=== PATIENT | male | born 1950 | race Caucasian/White ===

== ENCOUNTER 2017-12-08 10:42 | Inpatient (IN) ==
[2017-12-08] MEDS ORDERED: ALBUTEROL/IPRATROPIUM 3 ML NEB RESP TX PRN (12:12)
[2017-12-08] MEDS: ALBUTEROL/IPRATROPIUM 3 ML NEB RESP TX SCH ×2 (13:00→19:22)
[2017-12-08 13:10] LABS: ABG Base Excess 5.6 MMOL/L (-2.5-2.5); ABG HCO3 30.3 MMOL/L (20-26); ABG Oxygen Saturation 87.5 % (95-100); ABG PCO2 44.4 MM HG (35-48); ABG PH 7.452 (7.35-7.45); ABG PO2 57.4 MM HG (80-95); ABG TCO2 31.7 MMOL/L (23-27)
[2017-12-08 13:47] LABS: Basophils % 0.1 % (0.0-0.8); Eosinophils % 0.1 % (0.00-10.9); Hematocrit 34.7 VOL% (42.0-52.0); Hemoglobin 11.7 GM/DL (14.0-18.0); Immature Granulocytes % 0.4 %; Immature Granulocytes Absolute 0.04 #; Lymphocytes # 0.6 10*3/uL (1.4-4.0); Lymphocytes % 6.2 % (21.2-54.2); Mean Corpuscular HGB Conc 33.7 GM/DL (32-36); Mean Corpuscular Hemoglobin 31 PG (27-34); Mean Corpuscular Volume 91.3 FL (87-102); Mean Platelet Volume 9.2 FL (9.6-12.0); Monocytes # 0.8 10*3/uL (0.11-0.8); Monocytes % 8.6 % (1.7-12.7); Neutrophils % 84.6 % (38.7-73.9); Platelet Count 213 T/CUMM (130-400); Red Cell Distribution Width 13.1 % (9.3-17.3); White Blood Count 9.4 T/CUMM (4-12)
[2017-12-08] MEDS ORDERED: GLUCAGON 1 MG VIAL IM PRN ×2 (13:50→13:51)
[2017-12-08] MEDS ORDERED: DEXTROSE 50% 25 GM/50 ML VIAL IV PRN ×2 (13:50→13:51)
[2017-12-08] MEDS ORDERED: methylPREDNISolone SOD SUC 40 MG/1 ML VIAL IV SCH (14:00)
[2017-12-08 14:17] LABS: Albumin 2.7 G/DL (3.4-5.0); Bilirubin,Total 0.4 MG/DL (0.2-1.0); Calcium 8.7 MG/DL (8.5-10.1); Osmolality,Calculated 274.7 MOS/KG (273-304); Potassium 3.7 MMOL/L (3.5-5.1); Thyroid Stimulating Hormone 0.509 uIU/ml (0.358-3.74); Total Protein 6.9 G/DL (6.4-8.3)
[2017-12-08] MEDS: DEXTROSE 5% NACL 0.45% 1,000 ML IV SCH (15:30)
[2017-12-08] MEDS: LEVOFLOXACIN INJ 500 MG in PREMIX 1 EACH IV SCH (15:40)
[2017-12-08] MEDS: metFORMIN 500 MG TABLET PO SCH (17:57)
[2017-12-08] MEDS: INSULIN REGULAR 100 UNIT/ML SUBCUT SCH ×2 (17:58→21:56)
[2017-12-08] MEDS: MONTELUKAST 10 MG TABLET PO SCH ×2 (18:00→20:26)
[2017-12-08] MEDS: CLINDAMYCIN INJ 300 MG in PREMIX 1 EACH IV SCH ×2 (18:10→21:57)
[2017-12-08] MEDS: cloNIDine 0.1 MG TABLET PO SCH ×2 (19:39→21:56)
[2017-12-08] MEDS: MEMANTINE 10 MG TABLET PO SCH (20:26)
[2017-12-08] MEDS: traZODone 50 MG TABLET PO SCH (20:26)
[2017-12-08] MEDS: ATORVASTATIN 80 MG TABLET PO SCH (20:26)
[2017-12-08] MEDS: FERROUS SULFATE 325 MG TABLET PO SCH (20:26)
[2017-12-08] MEDS: risperiDONE 1 MG TABLET PO SCH (20:26)
[2017-12-08] MEDS: PHENobarbital 30 MG TABLET PO SCH (20:26)
[2017-12-08] MEDS: OMEGA 3 ACID ETHYL ESTERS 1 GM CAPSULE PO SCH (20:27)
[2017-12-08] MEDS: TAMSULOSIN 0.4 MG CAPSULE PO SCH (20:27)
[2017-12-08] MEDS: hydrOXYzine HCL 25 MG TABLET PO SCH (20:27)
[2017-12-08] MEDS: MAGNESIUM OXIDE 400 MG TABLET PO SCH (20:27)
[2017-12-08] MEDS: FLUTICASONE/SALMETEROL 100-50 DISKUS 14 DOSE INH SCH (21:51)
[2017-12-08] MEDS: METOPROLOL TARTRATE 50 MG TABLET PO SCH (21:52)
[2017-12-09] MEDS: ALBUTEROL/IPRATROPIUM 3 ML NEB RESP TX SCH ×4 (01:02→19:28)
[2017-12-09] MEDS: cloNIDine 0.1 MG TABLET PO SCH ×6 (03:03→21:00)
[2017-12-09] MEDS: CLINDAMYCIN INJ 300 MG in PREMIX 1 EACH IV SCH ×4 (03:03→21:00)
[2017-12-09] MEDS: methylPREDNISolone SOD SUC 40 MG/1 ML VIAL IV SCH ×2 (03:03→16:58)
[2017-12-09 05:40] LABS: Eosinophils % 0.3 % (0.00-10.9); Hematocrit 30.4 VOL% (42.0-52.0); Hemoglobin 9.8 GM/DL (14.0-18.0); Immature Granulocytes % 0.6 %; Immature Granulocytes Absolute 0.04 #; Lymphocytes # 0.8 10*3/uL (1.4-4.0); Lymphocytes % 12.2 % (21.2-54.2); Mean Corpuscular HGB Conc 32.2 GM/DL (32-36); Mean Corpuscular Hemoglobin 30 PG (27-34); Mean Corpuscular Volume 91.6 FL (87-102); Mean Platelet Volume 9.4 FL (9.6-12.0); Monocytes # 0.6 10*3/uL (0.11-0.8); Monocytes % 9.2 % (1.7-12.7); Neutrophils % 77.7 % (38.7-73.9); Platelet Count 203 T/CUMM (130-400); Red Blood Count 3.32 MC/CUMM (3.8-5.5); Red Cell Distribution Width 13.2 % (9.3-17.3); White Blood Count 6.4 T/CUMM (4-12)
[2017-12-09 06:09] LABS: Calcium 8.1 MG/DL (8.5-10.1); Osmolality,Calculated 276.2 MOS/KG (273-304); Potassium 3.6 MMOL/L (3.5-5.1)
[2017-12-09] MEDS: OMEGA 3 ACID ETHYL ESTERS 1 GM CAPSULE PO SCH ×2 (09:40→20:58)
[2017-12-09] MEDS: metFORMIN 500 MG TABLET PO SCH ×2 (09:40→16:57)
[2017-12-09] MEDS: PHENobarbital 30 MG TABLET PO SCH ×2 (09:40→21:03)
[2017-12-09] MEDS: THIAMINE 100 MG TABLET PO SCH (09:40)
[2017-12-09] MEDS: METOPROLOL TARTRATE 50 MG TABLET PO SCH ×2 (09:40→20:58)
[2017-12-09] MEDS: FOLIC ACID 1 MG TABLET PO SCH (09:41)
[2017-12-09] MEDS: MAGNESIUM OXIDE 400 MG TABLET PO SCH ×2 (09:41→20:58)
[2017-12-09] MEDS: MULTIVITAMIN (CENTRUM) TABLET PO SCH (09:41)
[2017-12-09] MEDS: ASPIRIN 325 MG TABLET PO SCH (09:41)
[2017-12-09] MEDS: FLUTICASONE/SALMETEROL 100-50 DISKUS 14 DOSE INH SCH ×2 (09:42→21:01)
[2017-12-09] MEDS: CETIRIZINE 10 MG TABLET PO PRN (09:42)
[2017-12-09] MEDS: VENLAFAXINE XR 75 MG CAPSULE PO SCH (09:42)
[2017-12-09] MEDS: FERROUS SULFATE 325 MG TABLET PO SCH ×2 (09:42→20:57)
[2017-12-09] MEDS: risperiDONE 1 MG TABLET PO SCH ×2 (09:53→20:57)
[2017-12-09] MEDS: MEMANTINE 10 MG TABLET PO SCH ×2 (09:53→20:58)
[2017-12-09] MEDS: amLODIPine 5 MG TABLET PO SCH (09:53)
[2017-12-09] MEDS: DEXTROSE 5% NACL 0.45% 1,000 ML IV SCH (10:03)
[2017-12-09] MEDS: INSULIN REGULAR 100 UNIT/ML SUBCUT SCH ×4 (10:06→20:57)
[2017-12-09 10:11] LABS: Apearance,Urine CLEAR (Clear); Bacteria,Urine Occasional /HPF (Few); Bilirubin,Urine Negative (Negative); Blood, Urine Negative (Negative); Glucose,Urine (UA) 150 mg/dL (Negative); Ketones,Urine Negative (Negative); Mucus,Urine Occasional /LPF (Occasional); Nitrite,Urine Negative (Negative); Protein,Urine Negative; RBC,Urine 2 /HPF (0-4); Sperm,Urine Occasional /HPF (Negative); Squamous Epithelial Cell,Urine Occasional /HPF (0-10); Urine Color Yellow (Yellow); Urine Specific Gravity 1.017 (1.001-1.035); Urine Urobilinogen < 2.0 EU/DL (0.2-1.0); WBC,Urine 5 /HPF (0-6)
[2017-12-09] MEDS: LEVOFLOXACIN INJ 500 MG in PREMIX 1 EACH IV SCH (17:58)
[2017-12-09] MEDS: traZODone 50 MG TABLET PO SCH (20:57)
[2017-12-09] MEDS: MONTELUKAST 10 MG TABLET PO SCH (20:57)
[2017-12-09] MEDS: hydrOXYzine HCL 25 MG TABLET PO SCH (20:58)
[2017-12-09] MEDS: ATORVASTATIN 80 MG TABLET PO SCH (20:58)
[2017-12-09] MEDS: TAMSULOSIN 0.4 MG CAPSULE PO SCH (21:03)
[2017-12-10] MEDS: cloNIDine 0.1 MG TABLET PO SCH ×6 (02:50→23:32)
[2017-12-10] MEDS: CLINDAMYCIN INJ 300 MG in PREMIX 1 EACH IV SCH ×4 (03:01→23:32)
[2017-12-10] MEDS: methylPREDNISolone SOD SUC 40 MG/1 ML VIAL IV SCH ×2 (03:01→16:26)
[2017-12-10] MEDS: DEXTROSE 5% NACL 0.45% 1,000 ML IV SCH ×2 (03:51→22:40)
[2017-12-10] MEDS: ALBUTEROL/IPRATROPIUM 3 ML NEB RESP TX SCH ×4 (07:35→19:35)
[2017-12-10] MEDS: FOLIC ACID 1 MG TABLET PO SCH (09:19)
[2017-12-10] MEDS: PHENobarbital 30 MG TABLET PO SCH ×2 (09:19→21:18)
[2017-12-10] MEDS: risperiDONE 1 MG TABLET PO SCH ×2 (09:19→21:19)
[2017-12-10] MEDS: METOPROLOL TARTRATE 50 MG TABLET PO SCH ×2 (09:19→21:19)
[2017-12-10] MEDS: MEMANTINE 10 MG TABLET PO SCH ×2 (09:19→21:19)
[2017-12-10] MEDS: MULTIVITAMIN (CENTRUM) TABLET PO SCH (09:19)
[2017-12-10] MEDS: FERROUS SULFATE 325 MG TABLET PO SCH ×2 (09:20→21:19)
[2017-12-10] MEDS: VENLAFAXINE XR 75 MG CAPSULE PO SCH (09:20)
[2017-12-10] MEDS: metFORMIN 500 MG TABLET PO SCH ×2 (09:20→16:25)
[2017-12-10] MEDS: amLODIPine 5 MG TABLET PO SCH (09:20)
[2017-12-10] MEDS: MAGNESIUM OXIDE 400 MG TABLET PO SCH ×2 (09:20→21:19)
[2017-12-10] MEDS: THIAMINE 100 MG TABLET PO SCH (09:21)
[2017-12-10] MEDS: CETIRIZINE 10 MG TABLET PO PRN (09:21)
[2017-12-10] MEDS: ASPIRIN 325 MG TABLET PO SCH (09:26)
[2017-12-10] MEDS: INSULIN REGULAR 100 UNIT/ML SUBCUT SCH ×4 (09:35→21:20)
[2017-12-10] MEDS: FLUTICASONE/SALMETEROL 100-50 DISKUS 14 DOSE INH SCH ×2 (09:37→22:05)
[2017-12-10] MEDS: OMEGA 3 ACID ETHYL ESTERS 1 GM CAPSULE PO SCH ×2 (09:37→21:19)
[2017-12-10] MEDS: LEVOFLOXACIN INJ 500 MG in PREMIX 1 EACH IV SCH (15:05)
[2017-12-10] MEDS: hydrOXYzine HCL 25 MG TABLET PO SCH (21:19)
[2017-12-10] MEDS: TAMSULOSIN 0.4 MG CAPSULE PO SCH (21:19)
[2017-12-10] MEDS: ATORVASTATIN 80 MG TABLET PO SCH (21:19)
[2017-12-10] MEDS: MONTELUKAST 10 MG TABLET PO SCH (21:19)
[2017-12-10] MEDS: traZODone 50 MG TABLET PO SCH (21:19)
[2017-12-11] MEDS: ALBUTEROL/IPRATROPIUM 3 ML NEB RESP TX SCH ×4 (01:06→19:22)
[2017-12-11] MEDS: cloNIDine 0.1 MG TABLET PO SCH ×6 (02:42→21:09)
[2017-12-11] MEDS: methylPREDNISolone SOD SUC 40 MG/1 ML VIAL IV SCH ×3 (04:25→21:36)
[2017-12-11] MEDS: CLINDAMYCIN INJ 300 MG in PREMIX 1 EACH IV SCH ×5 (04:27→21:52)
[2017-12-11] MEDS: INSULIN REGULAR 100 UNIT/ML SUBCUT SCH ×4 (09:36→21:11)
[2017-12-11] MEDS: FOLIC ACID 1 MG TABLET PO SCH (09:37)
[2017-12-11] MEDS: metFORMIN 500 MG TABLET PO SCH ×2 (09:37→16:51)
[2017-12-11] MEDS: PHENobarbital 30 MG TABLET PO SCH ×2 (09:37→21:08)
[2017-12-11] MEDS: MULTIVITAMIN (CENTRUM) TABLET PO SCH (09:37)
[2017-12-11] MEDS: MAGNESIUM OXIDE 400 MG TABLET PO SCH ×2 (09:37→21:08)
[2017-12-11] MEDS: ASPIRIN 325 MG TABLET PO SCH (09:37)
[2017-12-11] MEDS: OMEGA 3 ACID ETHYL ESTERS 1 GM CAPSULE PO SCH ×2 (09:37→21:10)
[2017-12-11] MEDS: VENLAFAXINE XR 75 MG CAPSULE PO SCH (09:38)
[2017-12-11] MEDS: METOPROLOL TARTRATE 50 MG TABLET PO SCH ×2 (09:38→21:08)
[2017-12-11] MEDS: THIAMINE 100 MG TABLET PO SCH (09:38)
[2017-12-11] MEDS: FERROUS SULFATE 325 MG TABLET PO SCH ×2 (09:38→21:10)
[2017-12-11] MEDS: amLODIPine 5 MG TABLET PO SCH (09:38)
[2017-12-11] MEDS: MEMANTINE 10 MG TABLET PO SCH ×2 (09:38→21:11)
[2017-12-11] MEDS: risperiDONE 1 MG TABLET PO SCH ×2 (09:38→21:08)
[2017-12-11] MEDS: FLUTICASONE/SALMETEROL 100-50 DISKUS 14 DOSE INH SCH ×2 (09:38→21:13)
[2017-12-11] MEDS ORDERED: ACETAMINOPHEN 325 MG TABLET PO PRN (09:48)
[2017-12-11] MEDS: LEVOFLOXACIN INJ 500 MG in PREMIX 1 EACH IV SCH (16:52)
[2017-12-11] MEDS: traZODone 50 MG TABLET PO SCH (21:09)
[2017-12-11] MEDS: TAMSULOSIN 0.4 MG CAPSULE PO SCH (21:09)
[2017-12-11] MEDS: hydrOXYzine HCL 25 MG TABLET PO SCH (21:11)
[2017-12-11] MEDS: ATORVASTATIN 80 MG TABLET PO SCH (21:11)
[2017-12-11] MEDS: MONTELUKAST 10 MG TABLET PO SCH (21:11)
[2017-12-11] MEDS: DEXTROSE 5% NACL 0.45% 1,000 ML IV SCH ×2 (21:40→21:46)
[2017-12-12] MEDS: cloNIDine 0.1 MG TABLET PO SCH ×6 (05:31→21:47)
[2017-12-12] MEDS: CLINDAMYCIN INJ 300 MG in PREMIX 1 EACH IV SCH ×4 (05:34→21:45)
[2017-12-12] MEDS: ALBUTEROL/IPRATROPIUM 3 ML NEB RESP TX SCH ×4 (07:19→19:12)
[2017-12-12] MEDS: methylPREDNISolone SOD SUC 40 MG/1 ML VIAL IV SCH ×2 (10:46→21:46)
[2017-12-12] MEDS: INSULIN REGULAR 100 UNIT/ML SUBCUT SCH ×4 (10:46→21:46)
[2017-12-12] MEDS: FOLIC ACID 1 MG TABLET PO SCH (10:47)
[2017-12-12] MEDS: MAGNESIUM OXIDE 400 MG TABLET PO SCH ×2 (10:47→21:46)
[2017-12-12] MEDS: amLODIPine 5 MG TABLET PO SCH (10:47)
[2017-12-12] MEDS: PHENobarbital 30 MG TABLET PO SCH ×2 (10:47→21:47)
[2017-12-12] MEDS: ASPIRIN 325 MG TABLET PO SCH (10:48)
[2017-12-12] MEDS: FLUTICASONE/SALMETEROL 100-50 DISKUS 14 DOSE INH SCH ×2 (10:48→21:44)
[2017-12-12] MEDS: VENLAFAXINE XR 75 MG CAPSULE PO SCH (10:48)
[2017-12-12] MEDS: THIAMINE 100 MG TABLET PO SCH (10:48)
[2017-12-12] MEDS: MULTIVITAMIN (CENTRUM) TABLET PO SCH (10:48)
[2017-12-12] MEDS: metFORMIN 500 MG TABLET PO SCH ×2 (10:48→17:19)
[2017-12-12] MEDS: OMEGA 3 ACID ETHYL ESTERS 1 GM CAPSULE PO SCH ×2 (10:48→21:53)
[2017-12-12] MEDS: FERROUS SULFATE 325 MG TABLET PO SCH ×2 (10:48→21:47)
[2017-12-12] MEDS: MEMANTINE 10 MG TABLET PO SCH ×2 (10:48→21:46)
[2017-12-12] MEDS: risperiDONE 1 MG TABLET PO SCH ×2 (10:48→21:47)
[2017-12-12] MEDS: METOPROLOL TARTRATE 50 MG TABLET PO SCH ×2 (10:48→21:47)
[2017-12-12] MEDS: DORNASE ALFA 2.5 MG/2.5 ML VIAL RESP TX SCH ×2 (13:38→19:21)
[2017-12-12] MEDS: LEVOFLOXACIN INJ 500 MG in PREMIX 1 EACH IV SCH (15:11)
[2017-12-12] MEDS: DEXTROSE 5% NACL 0.45% 1,000 ML IV SCH (19:20)
[2017-12-12] MEDS: hydrOXYzine HCL 25 MG TABLET PO SCH (21:46)
[2017-12-12] MEDS: TAMSULOSIN 0.4 MG CAPSULE PO SCH (21:46)
[2017-12-12] MEDS: traZODone 50 MG TABLET PO SCH (21:46)
[2017-12-12] MEDS: MONTELUKAST 10 MG TABLET PO SCH (21:46)
[2017-12-12] MEDS: ATORVASTATIN 80 MG TABLET PO SCH (21:47)
[2017-12-13] MEDS: cloNIDine 0.1 MG TABLET PO SCH ×6 (00:02→21:29)
[2017-12-13] MEDS: ALBUTEROL/IPRATROPIUM 3 ML NEB RESP TX SCH ×4 (01:20→19:18)
[2017-12-13 04:52] LABS: Basophils % 0.2 % (0.0-0.8); Eosinophils % 0.3 % (0.00-10.9); Hematocrit 34.1 VOL% (42.0-52.0); Hemoglobin 11.1 GM/DL (14.0-18.0); Immature Granulocytes % 0.6 %; Immature Granulocytes Absolute 0.06 #; Lymphocytes # 0.8 10*3/uL (1.4-4.0); Lymphocytes % 7.5 % (21.2-54.2); Mean Corpuscular HGB Conc 32.6 GM/DL (32-36); Mean Corpuscular Hemoglobin 30 PG (27-34); Mean Corpuscular Volume 91.7 FL (87-102); Mean Platelet Volume 9.3 FL (9.6-12.0); Monocytes # 0.5 10*3/uL (0.11-0.8); Monocytes % 4.6 % (1.7-12.7); Neutrophils # 8.6 10*3/uL (1.4-7.4); Neutrophils % 86.8 % (38.7-73.9); Platelet Count 243 T/CUMM (130-400); Red Blood Count 3.72 MC/CUMM (3.8-5.5); White Blood Count 9.9 T/CUMM (4-12)
[2017-12-13] MEDS: CLINDAMYCIN INJ 300 MG in PREMIX 1 EACH IV SCH ×4 (05:09→21:32)
[2017-12-13 05:24] LABS: Calcium 8.3 MG/DL (8.5-10.1); Osmolality,Calculated 269.7 MOS/KG (273-304); Potassium 4.6 MMOL/L (3.5-5.1)
[2017-12-13] MEDS: DORNASE ALFA 2.5 MG/2.5 ML VIAL RESP TX SCH ×2 (07:30→19:18)
[2017-12-13] MEDS: INSULIN REGULAR 100 UNIT/ML SUBCUT SCH ×4 (08:58→21:59)
[2017-12-13] MEDS: methylPREDNISolone SOD SUC 40 MG/1 ML VIAL IV SCH ×2 (09:30→21:29)
[2017-12-13] MEDS: amLODIPine 5 MG TABLET PO SCH (09:37)
[2017-12-13] MEDS: MULTIVITAMIN (CENTRUM) TABLET PO SCH (09:37)
[2017-12-13] MEDS: MEMANTINE 10 MG TABLET PO SCH ×2 (09:37→21:28)
[2017-12-13] MEDS: METOPROLOL TARTRATE 50 MG TABLET PO SCH ×2 (09:37→21:28)
[2017-12-13] MEDS: PHENobarbital 30 MG TABLET PO SCH ×2 (09:37→21:25)
[2017-12-13] MEDS: OMEGA 3 ACID ETHYL ESTERS 1 GM CAPSULE PO SCH ×2 (09:37→21:27)
[2017-12-13] MEDS: FERROUS SULFATE 325 MG TABLET PO SCH ×2 (09:37→21:28)
[2017-12-13] MEDS: THIAMINE 100 MG TABLET PO SCH (09:37)
[2017-12-13] MEDS: ASPIRIN 325 MG TABLET PO SCH (09:37)
[2017-12-13] MEDS: MAGNESIUM OXIDE 400 MG TABLET PO SCH ×3 (09:37→21:25)
[2017-12-13] MEDS: FOLIC ACID 1 MG TABLET PO SCH (09:37)
[2017-12-13] MEDS: metFORMIN 500 MG TABLET PO SCH ×2 (09:37→17:27)
[2017-12-13] MEDS: VENLAFAXINE XR 75 MG CAPSULE PO SCH (09:37)
[2017-12-13] MEDS: FLUTICASONE/SALMETEROL 100-50 DISKUS 14 DOSE INH SCH ×2 (09:38→21:24)
[2017-12-13 10:38] LABS: ABG Base Excess 2.5 MMOL/L (-2.5-2.5); ABG HCO3 26.4 MMOL/L (20-26); ABG Oxygen Saturation 87.2 % (95-100); ABG PCO2 45.3 MM HG (35-48); ABG PH 7.396 (7.35-7.45); ABG PO2 56.6 MM HG (80-95); ABG TCO2 24.9 MMOL/L (23-27)
[2017-12-13] MEDS: risperiDONE 1 MG TABLET PO SCH ×2 (12:54→21:25)
[2017-12-13] MEDS: LEVOFLOXACIN INJ 500 MG in PREMIX 1 EACH IV SCH (16:12)
[2017-12-13] MEDS: DEXTROSE 5% NACL 0.45% 1,000 ML IV SCH (16:14)
[2017-12-13] MEDS: MONTELUKAST 10 MG TABLET PO SCH (21:25)
[2017-12-13] MEDS: ATORVASTATIN 80 MG TABLET PO SCH (21:26)
[2017-12-13] MEDS: traZODone 50 MG TABLET PO SCH (21:26)
[2017-12-13] MEDS: hydrOXYzine HCL 25 MG TABLET PO SCH (21:27)
[2017-12-13] MEDS: TAMSULOSIN 0.4 MG CAPSULE PO SCH (21:28)
[2017-12-14] MEDS: cloNIDine 0.1 MG TABLET PO SCH ×6 (00:47→20:17)
[2017-12-14] MEDS: ALBUTEROL/IPRATROPIUM 3 ML NEB RESP TX SCH ×4 (02:06→20:15)
[2017-12-14] MEDS: CLINDAMYCIN INJ 300 MG in PREMIX 1 EACH IV SCH ×4 (04:00→22:08)
[2017-12-14] MEDS: DORNASE ALFA 2.5 MG/2.5 ML VIAL RESP TX SCH ×2 (07:10→20:15)
[2017-12-14] MEDS: METOPROLOL TARTRATE 50 MG TABLET PO SCH ×2 (09:05→20:17)
[2017-12-14] MEDS: MAGNESIUM OXIDE 400 MG TABLET PO SCH ×3 (09:05→20:17)
[2017-12-14] MEDS: MULTIVITAMIN (CENTRUM) TABLET PO SCH (09:06)
[2017-12-14] MEDS: amLODIPine 5 MG TABLET PO SCH (09:06)
[2017-12-14] MEDS: metFORMIN 500 MG TABLET PO SCH ×2 (09:06→16:27)
[2017-12-14] MEDS: OMEGA 3 ACID ETHYL ESTERS 1 GM CAPSULE PO SCH ×2 (09:06→20:17)
[2017-12-14] MEDS: MEMANTINE 10 MG TABLET PO SCH ×2 (09:07→20:17)
[2017-12-14] MEDS: THIAMINE 100 MG TABLET PO SCH (09:07)
[2017-12-14] MEDS: risperiDONE 1 MG TABLET PO SCH ×2 (09:07→20:16)
[2017-12-14] MEDS: ASPIRIN 325 MG TABLET PO SCH (09:07)
[2017-12-14] MEDS: VENLAFAXINE XR 75 MG CAPSULE PO SCH (09:08)
[2017-12-14] MEDS: FERROUS SULFATE 325 MG TABLET PO SCH ×2 (09:08→20:17)
[2017-12-14] MEDS: FOLIC ACID 1 MG TABLET PO SCH (09:08)
[2017-12-14] MEDS: methylPREDNISolone SOD SUC 40 MG/1 ML VIAL IV SCH ×2 (09:12→20:18)
[2017-12-14] MEDS: DEXTROSE 5% NACL 0.45% 1,000 ML IV SCH (09:25)
[2017-12-14] MEDS: INSULIN REGULAR 100 UNIT/ML SUBCUT SCH ×4 (09:45→20:24)
[2017-12-14] MEDS: FLUTICASONE/SALMETEROL 100-50 DISKUS 14 DOSE INH SCH ×2 (09:46→20:18)
[2017-12-14] MEDS: PHENobarbital 30 MG TABLET PO SCH ×2 (10:16→20:17)
[2017-12-14] MEDS: LEVOFLOXACIN INJ 500 MG in PREMIX 1 EACH IV SCH (16:28)
[2017-12-14] MEDS: TAMSULOSIN 0.4 MG CAPSULE PO SCH (20:17)
[2017-12-14] MEDS: ATORVASTATIN 80 MG TABLET PO SCH (20:17)
[2017-12-14] MEDS: MONTELUKAST 10 MG TABLET PO SCH (20:17)
[2017-12-14] MEDS: traZODone 50 MG TABLET PO SCH (20:17)
[2017-12-14] MEDS: hydrOXYzine HCL 25 MG TABLET PO SCH (20:17)
[2017-12-15] MEDS: cloNIDine 0.1 MG TABLET PO SCH ×4 (00:22→12:50)
[2017-12-15] MEDS: ALBUTEROL/IPRATROPIUM 3 ML NEB RESP TX SCH ×2 (01:28→07:50)
[2017-12-15 03:24] LABS: Basophils % 0.1 % (0.0-0.8); Eosinophils % 0.3 % (0.00-10.9); Hematocrit 34.1 VOL% (42.0-52.0); Hemoglobin 10.9 GM/DL (14.0-18.0); Immature Granulocytes % 0.4 %; Immature Granulocytes Absolute 0.04 #; Lymphocytes # 0.8 10*3/uL (1.4-4.0); Lymphocytes % 8.4 % (21.2-54.2); Mean Corpuscular Hemoglobin 30 PG (27-34); Mean Corpuscular Volume 93.4 FL (87-102); Mean Platelet Volume 9.7 FL (9.6-12.0); Monocytes # 0.4 10*3/uL (0.11-0.8); Monocytes % 4.6 % (1.7-12.7); Neutrophils # 8.3 10*3/uL (1.4-7.4); Neutrophils % 86.2 % (38.7-73.9); Platelet Count 256 T/CUMM (130-400); Red Blood Count 3.65 MC/CUMM (3.8-5.5); Red Cell Distribution Width 12.9 % (9.3-17.3); White Blood Count 9.6 T/CUMM (4-12)
[2017-12-15] MEDS: CLINDAMYCIN INJ 300 MG in PREMIX 1 EACH IV SCH ×2 (03:36→09:09)
[2017-12-15] MEDS: DEXTROSE 5% NACL 0.45% 1,000 ML IV SCH (03:39)
[2017-12-15 04:33] LABS: Calcium 8.4 MG/DL (8.5-10.1); Osmolality,Calculated 271.8 MOS/KG (273-304); Potassium 5.7 MMOL/L (3.5-5.1)
[2017-12-15] MEDS: DORNASE ALFA 2.5 MG/2.5 ML VIAL RESP TX SCH (07:54)
[2017-12-15] MEDS: metFORMIN 500 MG TABLET PO SCH (08:23)
[2017-12-15] MEDS: VENLAFAXINE XR 75 MG CAPSULE PO SCH (08:23)
[2017-12-15] MEDS: METOPROLOL TARTRATE 50 MG TABLET PO SCH (08:23)
[2017-12-15] MEDS: INSULIN REGULAR 100 UNIT/ML SUBCUT SCH ×2 (08:23→12:49)
[2017-12-15] MEDS: MAGNESIUM OXIDE 400 MG TABLET PO SCH (08:23)
[2017-12-15] MEDS: PHENobarbital 30 MG TABLET PO SCH (08:23)
[2017-12-15] MEDS: FOLIC ACID 1 MG TABLET PO SCH (08:23)
[2017-12-15] MEDS: THIAMINE 100 MG TABLET PO SCH (08:23)
[2017-12-15] MEDS: FERROUS SULFATE 325 MG TABLET PO SCH (08:23)
[2017-12-15] MEDS: OMEGA 3 ACID ETHYL ESTERS 1 GM CAPSULE PO SCH (08:23)
[2017-12-15] MEDS: amLODIPine 5 MG TABLET PO SCH (08:24)
[2017-12-15] MEDS: MULTIVITAMIN (CENTRUM) TABLET PO SCH (08:24)
[2017-12-15] MEDS: risperiDONE 1 MG TABLET PO SCH (08:24)
[2017-12-15] MEDS: methylPREDNISolone SOD SUC 40 MG/1 ML VIAL IV SCH (08:24)
[2017-12-15] MEDS: ASPIRIN 325 MG TABLET PO SCH (08:24)
[2017-12-15] MEDS: MEMANTINE 10 MG TABLET PO SCH (08:24)
[2017-12-15] MEDS: FLUTICASONE/SALMETEROL 100-50 DISKUS 14 DOSE INH SCH (08:25)
[2017-12-15 09:11] VITALS: BP 145/70
[2017-12-15] MEDS ORDERED: MAGNESIUM SULF RIDER 2 GM in PREMIX 1 EACH IV PRN (09:17)
[2017-12-15] MEDS ORDERED: MAGNESIUM SULF RIDER 4 GM in PREMIX 1 EACH IV PRN (09:17)
== END 2017-12-15 14:09 | DRG 194 ==
LOC: N.5E 12:24
PROVIDERS: ADMIT Internal Medicine Pulmonary Disease; ATTEND Internal Medicine Pulmonary Disease

== ENCOUNTER 2019-10-23 19:17 | Inpatient (IN) ==
[2019-10-23] MEDS ORDERED: ALBUTEROL/IPRATROPIUM 3 ML NEB RESP TX STA (20:57)
[2019-10-23] MEDS ORDERED: SODIUM CHLORIDE 0.9% 1,000 ML IV STA (20:57)
[2019-10-23 21:19] LABS: Basophils % 0.3 % (0.0-0.8); Eosinophils # 0.2 10*3/uL (0.0-0.87); Hemoglobin 11.3 GM/DL (14.0-18.0); Immature Granulocytes % 0.3 %; Immature Granulocytes Absolute 0.03 #; Lymphocytes # 1.1 10*3/uL (1.4-4.0); Lymphocytes % 10.8 % (21.2-54.2); Mean Corpuscular HGB Conc 32.3 GM/DL (32-36); Mean Corpuscular Volume 87.9 FL (87-102); Mean Platelet Volume 9.3 FL (9.6-12.0); Monocytes % 13.6 % (1.7-12.7); Platelet Count 208 T/CUMM (130-400); Red Blood Count 3.98 MC/CUMM (3.8-5.5); Red Cell Distribution Width 14.3 % (9.3-17.3); White Blood Count 10.1 T/CUMM (4-12)
[2019-10-23 21:44] LABS: Alanine Aminotransferase 20 U/L (16-61); Albumin 2.9 G/DL (3.4-5.0); Alkaline Phosphatase 86 U/L (45-117); Aspartate Amino Transferase 20 U/L (0-37); Bilirubin,Total < 0.39 MG/DL (0.2-1.0); Blood Urea Nitrogen 11 MG/DL (7-18); Calcium 8.9 MG/DL (8.5-10.1); Estimated Glom Filtration Rate 113 ML/MIN; Glucose 124 MG/DL (74-106); Osmolality,Calculated 256.1 MOS/KG (273-304); Total Protein 7.3 G/DL (6.4-8.3); Troponin I < 0.015 NG/ML (0.00-0.045)
[2019-10-23 21:47] LABS: INR 1.1; PT Patient Result 11.6 SECS (9.8-11.9); Partial Thromboplastin Time 34.7 SECS (23.9-33.8)
[2019-10-23] MEDS ORDERED: LEVOFLOXACIN INJ 750 MG in PREMIX 1 EACH IV STA (23:37)
[2019-10-23] MEDS ORDERED: MORPHINE 4 MG/1 ML VIAL IV PRN (23:56)
[2019-10-23] MEDS ORDERED: hydrALAZINE 20 MG/1 ML VIAL IV PRN (23:56)
[2019-10-23] MEDS ORDERED: GLUCAGON 1 MG VIAL IM PRN (23:56)
[2019-10-23] MEDS ORDERED: NICOTINE 21 MG/24 HR PATCH TRANSDERM PRN (23:56)
[2019-10-23] MEDS ORDERED: ZALEPLON 5 MG CAPSULE PO PRN (23:56)
[2019-10-23] MEDS ORDERED: guaiFENesin/DM ER 600-30 MG TABLET PO PRN (23:56)
[2019-10-23] MEDS ORDERED: ACETAMINOPHEN 325 MG TABLET PO PRN (23:56)
[2019-10-23] MEDS ORDERED: diphenhydrAMINE CAP 25 MG CAPSULE PO PRN (23:56)
[2019-10-23] MEDS ORDERED: ONDANSETRON 4 MG/2 ML VIAL IV PRN (23:56)
[2019-10-23] MEDS ORDERED: DEXTROSE 50% 25 GM/50 ML VIAL IV PRN (23:56)
[2019-10-24] MEDS ORDERED: AZITHROMYCIN INJ 500 MG in SODIUM CHLORIDE 0.9% 250 ML IV SCH
[2019-10-24] MEDS ORDERED: VANCOMYCIN INJ 1,250 MG in SODIUM CHLORIDE 0.9% 250 ML IV SCH (01:00)
[2019-10-24 01:29] LABS: Apearance,Urine CLEAR (Clear); Bilirubin,Urine Negative (Negative); Blood, Urine Negative (Negative); Glucose,Urine (UA) Negative (Negative); Ketones,Urine Negative (Negative); Mucus,Urine Occasional /LPF (Occasional); Nitrite,Urine Negative (Negative); Protein,Urine Negative; RBC,Urine 13 /HPF (0-4); Urine Color Yellow (Yellow); WBC,Urine 4 /HPF (0-6)
[2019-10-24 02:24] LABS: Basophils % 0.3 % (0.0-0.8); Eosinophils # 0.2 10*3/uL (0.0-0.87); Eosinophils % 1.8 % (0.00-10.9); Hematocrit 32.6 VOL% (42.0-52.0); Hemoglobin 10.6 GM/DL (14.0-18.0); Immature Granulocytes % 0.4 %; Immature Granulocytes Absolute 0.04 #; Lymphocytes # 1.1 10*3/uL (1.4-4.0); Lymphocytes % 12.7 % (21.2-54.2); Mean Corpuscular HGB Conc 32.5 GM/DL (32-36); Mean Corpuscular Volume 88.3 FL (87-102); Mean Platelet Volume 9.1 FL (9.6-12.0); Monocytes % 12.8 % (1.7-12.7); Platelet Count 184 T/CUMM (130-400); Red Blood Count 3.69 MC/CUMM (3.8-5.5); Red Cell Distribution Width 14.3 % (9.3-17.3)
[2019-10-24] MEDS ORDERED: ALBUTEROL INHALER 18 GM INH PRN (02:43)
[2019-10-24 02:44] LABS: Alanine Aminotransferase 18 U/L (16-61); Albumin 2.6 G/DL (3.4-5.0); Alkaline Phosphatase 78 U/L (45-117); Aspartate Amino Transferase 18 U/L (0-37); Bilirubin,Total < 0.39 MG/DL (0.2-1.0); Blood Urea Nitrogen 11 MG/DL (7-18); Calcium 8.3 MG/DL (8.5-10.1); Estimated Glom Filtration Rate 122 ML/MIN; Glucose 173 MG/DL (74-106); Osmolality,Calculated 260.9 MOS/KG (273-304); Total Protein 6.9 G/DL (6.4-8.3)
[2019-10-24] MEDS: methylPREDNISolone SOD SUC 40 MG/1 ML VIAL IV SCH ×5 (02:45→18:33)
[2019-10-24] MEDS ORDERED: PANTOPRAZOLE 40 MG TABLET PO SCH (09:00)
[2019-10-24] MEDS ORDERED: AZITHROMYCIN 250 MG TABLET PO SCH (09:00)
[2019-10-24] MEDS ORDERED: LEVOFLOXACIN INJ 500 MG in PREMIX 1 EACH IV SCH (09:30)
[2019-10-24] MEDS: INSULIN LISPRO 100 UNIT/ML SUBCUT SCH ×4 (09:49→21:53)
[2019-10-24] MEDS: ENOXAPARIN 40 MG/0.4 ML SYRINGE SUBCUT SCH (09:49)
[2019-10-24] MEDS: ALBUTEROL INHALER 18 GM INH SCH ×5 (09:49→23:45)
[2019-10-24] MEDS: ASPIRIN 325 MG TABLET PO SCH (09:50)
[2019-10-24] MEDS: VENLAFAXINE XR 75 MG CAPSULE PO SCH (09:50)
[2019-10-24] MEDS: FOLIC ACID 1 MG TABLET PO SCH (09:51)
[2019-10-24] MEDS: METOPROLOL TARTRATE 50 MG TABLET PO SCH ×2 (09:51→20:33)
[2019-10-24] MEDS: THIAMINE 100 MG TABLET PO SCH (09:51)
[2019-10-24] MEDS: MULTIVITAMIN (CENTRUM) TABLET PO SCH (09:52)
[2019-10-24] MEDS: FERROUS SULFATE 325 MG TABLET PO SCH ×2 (09:52→20:32)
[2019-10-24] MEDS: DOCUSATE SODIUM 100 MG CAPSULE PO SCH ×2 (09:52→20:33)
[2019-10-24] MEDS: amLODIPine 5 MG TABLET PO SCH (09:52)
[2019-10-24] MEDS: MEMANTINE 10 MG TABLET PO SCH ×2 (09:52→20:33)
[2019-10-24] MEDS: OMEGA 3 ACID ETHYL ESTERS 1 GM CAPSULE PO SCH ×2 (09:52→20:33)
[2019-10-24] MEDS: traZODone 50 MG TABLET PO SCH (20:32)
[2019-10-24] MEDS: ATORVASTATIN 80 MG TABLET PO SCH (20:33)
[2019-10-24] MEDS: TAMSULOSIN 0.4 MG CAPSULE PO SCH (20:33)
[2019-10-24] MEDS: MONTELUKAST 10 MG TABLET PO SCH (20:33)
[2019-10-25] MEDS: methylPREDNISolone SOD SUC 40 MG/1 ML VIAL IV SCH ×4 (00:49→21:01)
[2019-10-25] MEDS: ALBUTEROL INHALER 18 GM INH SCH ×6 (03:37→23:58)
[2019-10-25 07:28] LABS: Hematocrit 31.9 VOL% (42.0-52.0); Hemoglobin 10.5 GM/DL (14.0-18.0); Immature Granulocytes % 0.5 %; Immature Granulocytes Absolute 0.03 #; Lymphocytes # 0.7 10*3/uL (1.4-4.0); Lymphocytes % 10.2 % (21.2-54.2); Mean Corpuscular HGB Conc 32.9 GM/DL (32-36); Mean Corpuscular Volume 86.7 FL (87-102); Mean Platelet Volume 9.5 FL (9.6-12.0); Monocytes % 4.9 % (1.7-12.7); Neutrophils % 84.4 % (38.7-73.9); Platelet Count 194 T/CUMM (130-400); Red Blood Count 3.68 MC/CUMM (3.8-5.5); Red Cell Distribution Width 14.2 % (9.3-17.3); White Blood Count 6.6 T/CUMM (4-12)
[2019-10-25 07:45] LABS: Calcium 8.7 MG/DL (8.5-10.1); Osmolality,Calculated 257.2 MOS/KG (273-304)
[2019-10-25 08:08] LABS: Ferritin 143.4 ng/ml (26-388)
[2019-10-25] MEDS: INSULIN LISPRO 100 UNIT/ML SUBCUT SCH ×4 (09:21→21:01)
[2019-10-25] MEDS: VENLAFAXINE XR 75 MG CAPSULE PO SCH (09:22)
[2019-10-25] MEDS: ASPIRIN 325 MG TABLET PO SCH (09:22)
[2019-10-25] MEDS: OMEGA 3 ACID ETHYL ESTERS 1 GM CAPSULE PO SCH ×2 (09:22→21:00)
[2019-10-25] MEDS: FERROUS SULFATE 325 MG TABLET PO SCH ×2 (09:22→21:00)
[2019-10-25] MEDS: METOPROLOL TARTRATE 50 MG TABLET PO SCH ×2 (09:22→21:00)
[2019-10-25] MEDS: MEMANTINE 10 MG TABLET PO SCH ×2 (09:22→21:01)
[2019-10-25] MEDS: ENOXAPARIN 40 MG/0.4 ML SYRINGE SUBCUT SCH (09:22)
[2019-10-25] MEDS: MULTIVITAMIN (CENTRUM) TABLET PO SCH (09:22)
[2019-10-25] MEDS: FOLIC ACID 1 MG TABLET PO SCH (09:22)
[2019-10-25] MEDS: DOCUSATE SODIUM 100 MG CAPSULE PO SCH ×2 (09:23→21:14)
[2019-10-25] MEDS: LEVOFLOXACIN 500 MG TABLET PO SCH (09:23)
[2019-10-25] MEDS: amLODIPine 5 MG TABLET PO SCH (09:23)
[2019-10-25] MEDS: THIAMINE 100 MG TABLET PO SCH (09:23)
[2019-10-25] MEDS ORDERED: VANCOMYCIN INJ 1,000 MG in SODIUM CHLORIDE 0.9% 250 ML IV SCH (13:30)
[2019-10-25] MEDS: traZODone 50 MG TABLET PO SCH (21:00)
[2019-10-25] MEDS: ATORVASTATIN 80 MG TABLET PO SCH (21:00)
[2019-10-25] MEDS: TAMSULOSIN 0.4 MG CAPSULE PO SCH (21:01)
[2019-10-25] MEDS: MONTELUKAST 10 MG TABLET PO SCH (21:01)
[2019-10-26] MEDS: ALBUTEROL INHALER 18 GM INH SCH ×6 (03:12→23:53)
[2019-10-26] MEDS: methylPREDNISolone SOD SUC 40 MG/1 ML VIAL IV SCH ×4 (03:12→20:35)
[2019-10-26 06:14] LABS: Hematocrit 33.1 VOL% (42.0-52.0); Hemoglobin 10.8 GM/DL (14.0-18.0); Immature Granulocytes % 0.5 %; Immature Granulocytes Absolute 0.04 #; Lymphocytes # 0.7 10*3/uL (1.4-4.0); Lymphocytes % 9.5 % (21.2-54.2); Mean Corpuscular HGB Conc 32.6 GM/DL (32-36); Mean Corpuscular Volume 87.3 FL (87-102); Mean Platelet Volume 9.4 FL (9.6-12.0); Monocytes % 3.7 % (1.7-12.7); Neutrophils % 86.3 % (38.7-73.9); Platelet Count 221 T/CUMM (130-400); Red Blood Count 3.79 MC/CUMM (3.8-5.5); White Blood Count 7.6 T/CUMM (4-12)
[2019-10-26 06:43] LABS: Calcium 8.9 MG/DL (8.5-10.1); Osmolality,Calculated 259.1 MOS/KG (273-304)
[2019-10-26 06:54] LABS: Ferritin 150.9 ng/ml (26-388)
[2019-10-26] MEDS: INSULIN LISPRO 100 UNIT/ML SUBCUT SCH ×4 (08:39→20:34)
[2019-10-26] MEDS: DOCUSATE SODIUM 100 MG CAPSULE PO SCH ×2 (08:40→20:36)
[2019-10-26] MEDS: OMEGA 3 ACID ETHYL ESTERS 1 GM CAPSULE PO SCH ×2 (08:40→20:36)
[2019-10-26] MEDS: VENLAFAXINE XR 75 MG CAPSULE PO SCH (08:40)
[2019-10-26] MEDS: LEVOFLOXACIN 500 MG TABLET PO SCH (08:40)
[2019-10-26] MEDS: THIAMINE 100 MG TABLET PO SCH (08:40)
[2019-10-26] MEDS: FERROUS SULFATE 325 MG TABLET PO SCH ×2 (08:40→20:35)
[2019-10-26] MEDS: amLODIPine 5 MG TABLET PO SCH (08:40)
[2019-10-26] MEDS: MEMANTINE 10 MG TABLET PO SCH ×2 (08:40→20:36)
[2019-10-26] MEDS: MULTIVITAMIN (CENTRUM) TABLET PO SCH (08:40)
[2019-10-26] MEDS: ENOXAPARIN 40 MG/0.4 ML SYRINGE SUBCUT SCH (08:40)
[2019-10-26] MEDS: ASPIRIN 325 MG TABLET PO SCH (08:40)
[2019-10-26] MEDS: METOPROLOL TARTRATE 50 MG TABLET PO SCH ×2 (08:40→20:35)
[2019-10-26] MEDS: FOLIC ACID 1 MG TABLET PO SCH (08:40)
[2019-10-26] MEDS: ATORVASTATIN 80 MG TABLET PO SCH (20:35)
[2019-10-26] MEDS: MONTELUKAST 10 MG TABLET PO SCH (20:36)
[2019-10-26] MEDS: TAMSULOSIN 0.4 MG CAPSULE PO SCH (20:36)
[2019-10-26] MEDS: traZODone 50 MG TABLET PO SCH (20:36)
[2019-10-27] MEDS: methylPREDNISolone SOD SUC 40 MG/1 ML VIAL IV SCH ×2 (02:52→08:16)
[2019-10-27] MEDS: ALBUTEROL INHALER 18 GM INH SCH ×3 (02:53→10:30)
[2019-10-27 06:38] LABS: Hematocrit 38.5 VOL% (42.0-52.0); Hemoglobin 12.6 GM/DL (14.0-18.0); Immature Granulocytes % 0.8 %; Immature Granulocytes Absolute 0.05 #; Lymphocytes # 0.8 10*3/uL (1.4-4.0); Lymphocytes % 12.2 % (21.2-54.2); Mean Corpuscular HGB Conc 32.7 GM/DL (32-36); Mean Corpuscular Volume 85.6 FL (87-102); Mean Platelet Volume 9.5 FL (9.6-12.0); Monocytes % 6.8 % (1.7-12.7); Neutrophils % 80.2 % (38.7-73.9); Platelet Count 261 T/CUMM (130-400); Red Cell Distribution Width 13.9 % (9.3-17.3); White Blood Count 6.5 T/CUMM (4-12)
[2019-10-27 06:44] LABS: Calcium 9.3 MG/DL (8.5-10.1); Osmolality,Calculated 255.5 MOS/KG (273-304)
[2019-10-27 06:48] LABS: Ferritin 177.4 ng/ml (26-388)
[2019-10-27] MEDS: MULTIVITAMIN (CENTRUM) TABLET PO SCH (08:14)
[2019-10-27] MEDS: VENLAFAXINE XR 75 MG CAPSULE PO SCH (08:14)
[2019-10-27] MEDS: ASPIRIN 325 MG TABLET PO SCH (08:14)
[2019-10-27] MEDS: LEVOFLOXACIN 500 MG TABLET PO SCH (08:15)
[2019-10-27] MEDS: THIAMINE 100 MG TABLET PO SCH (08:15)
[2019-10-27] MEDS: ENOXAPARIN 40 MG/0.4 ML SYRINGE SUBCUT SCH (08:15)
[2019-10-27] MEDS: INSULIN LISPRO 100 UNIT/ML SUBCUT SCH ×2 (08:15→11:24)
[2019-10-27] MEDS: FOLIC ACID 1 MG TABLET PO SCH (08:15)
[2019-10-27] MEDS: METOPROLOL TARTRATE 50 MG TABLET PO SCH (08:15)
[2019-10-27] MEDS: OMEGA 3 ACID ETHYL ESTERS 1 GM CAPSULE PO SCH (08:15)
[2019-10-27] MEDS: DOCUSATE SODIUM 100 MG CAPSULE PO SCH (08:15)
[2019-10-27] MEDS: MEMANTINE 10 MG TABLET PO SCH (08:15)
[2019-10-27] MEDS: FERROUS SULFATE 325 MG TABLET PO SCH (08:15)
[2019-10-27] MEDS: amLODIPine 5 MG TABLET PO SCH (08:15)
[2019-10-27 11:23] VITALS: BP 148/73
== END 2019-10-27 15:19 | DRG 190 ==
LOC: EDUNIT# → EDBD → N.ED 19:17 → N.EDINP 23:56 → N.2E 10-24 01:34 → N.4E 10-26 11:39
PROVIDERS: ADMIT Hospitalist; ATTEND Hospitalist

== ENCOUNTER 2021-11-11 16:55 | Inpatient (IN) ==
[2021-11-11] MEDS ORDERED: SODIUM CHLORIDE 0.9% 1,000 ML IV STA (17:44)
[2021-11-11 18:34] LABS: Arterial Base Excess iSTAT 6 MMOL/L (-2.5-2.5); Arterial Bicarbonate iSTAT 32.9 MMOL/L (20-26); Arterial O2 Saturation iSTAT 72 % (95-100); Arterial PCO2 iSTAT 57 MM HG (35-48); Arterial PO2 iSTAT 40 MM HG (80-95); Arterial Total CO2 iSTAT 35 MMO/L (23-27); Arterial pH iSTAT 7.372 (7.35-7.45)
[2021-11-11 18:34] LABS: Arterial Base Excess iSTAT 5 MMOL/L (-2.5-2.5); Arterial Bicarbonate iSTAT 31.5 MMOL/L (20-26); Arterial O2 Saturation iSTAT 91 % (95-100); Arterial PCO2 iSTAT 53 MM HG (35-48); Arterial PO2 iSTAT 62 MM HG (80-95); Arterial Total CO2 iSTAT 33 MMO/L (23-27); Arterial pH iSTAT 7.385 (7.35-7.45)
[2021-11-11 18:46] LABS: Basophils % 0.3 % (0.0-0.8); Eosinophils # 0.3 10*3/uL (0.0-0.87); Eosinophils % 4.7 % (0.00-10.9); Hematocrit 34.4 VOL% (42.0-52.0); Hemoglobin 10.8 GM/DL (14.0-18.0); Immature Granulocytes % 0.3 %; Immature Granulocytes Absolute 0.02 #; Lymphocytes # 1.4 10*3/uL (1.4-4.0); Lymphocytes % 19.3 % (21.2-54.2); Mean Corpuscular HGB Conc 31.4 GM/DL (32-36); Mean Corpuscular Volume 91.5 FL (87-102); Monocytes # 0.9 10*3/uL (0.11-0.8); Monocytes % 12.8 % (1.7-12.7); Neutrophils % 62.6 % (38.7-73.9); Platelet Count 223 T/CUMM (130-400); Red Blood Count 3.76 MC/CUMM (3.8-5.5); Red Cell Distribution Width 14.1 % (9.3-17.3)
[2021-11-11] MEDS ORDERED: LEVOFLOXACIN INJ 500 MG/100 ML PREMIX IV ONE (19:07)
[2021-11-11] MEDS ORDERED: ALBUTEROL/IPRATROPIUM 3 ML NEB RESP TX STA (19:07)
[2021-11-11] MEDS ORDERED: methylPREDNISolone SOD SUC 125 MG/2 ML VIAL IV STA (19:07)
[2021-11-11 19:16] LABS: Alanine Aminotransferase 23 U/L (16-61); Albumin 2.6 G/DL (3.4-5.0); Alkaline Phosphatase 81 U/L (45-117); Aspartate Amino Transferase 24 U/L (0-37); Bilirubin,Total < 0.39 MG/DL (0.20-1.00); Blood Urea Nitrogen 10 MG/DL (7-18); Calcium 8.5 MG/DL (8.5-10.1); Carbon Dioxide 32 MMOL/L (21-32); Chloride 99 MMOL/L (98-107); Glucose 111 MG/DL (74-106); Osmolality,Calculated 267.2 MOS/KG (273-304); Potassium 4.4 MMOL/L (3.5-5.1); Sodium 134 MMOL/L (136-145); Total Protein 7.3 G/DL (6.4-8.2)
[2021-11-11] MEDS ORDERED: GLUCAGON 1 MG VIAL IM PRN ×2 (20:14)
[2021-11-11] MEDS ORDERED: ONDANSETRON 4 MG/2 ML VIAL IV PRN (20:14)
[2021-11-11] MEDS ORDERED: DEXTROSE 10% 250 ML BAG IV PRN (20:14)
[2021-11-11] MEDS ORDERED: DEXTROSE 50% 25 GM/50 ML VIAL IV PRN (20:14)
[2021-11-11] MEDS ORDERED: ACETAMINOPHEN 325 MG TABLET PO PRN (20:14)
[2021-11-11] MEDS ORDERED: DOXYCYCLINE HYCLATE INJ 100 MG in SODIUM CHLORIDE 0.9% 100 ML IV SCH (21:00)
[2021-11-11] MEDS ORDERED: cloNIDine 0.1 MG TABLET PO PRN (21:00)
[2021-11-11] MEDS: ENOXAPARIN 40 MG/0.4 ML SYRINGE SUBCUT SCH (22:01)
[2021-11-11] MEDS: INSULIN REGULAR 100 UNIT/ML SUBCUT SCH (22:07)
[2021-11-11] MEDS ORDERED: AZITHROMYCIN INJ 500 MG in SODIUM CHLORIDE 0.9% 250 ML IV SCH (23:00)
[2021-11-11] MEDS: LACTATED RINGERS 1,000 ML IV SCH (23:28)
[2021-11-12] MEDS: ALBUTEROL 2.5 MG/3 ML NEB RESP TX SCH ×4 (00:18→19:43)
[2021-11-12] MEDS: methylPREDNISolone SOD SUC 40 MG/1 ML VIAL IV SCH ×2 (03:11→18:42)
[2021-11-12 05:30] LABS: Basophils % 0.2 % (0.0-0.8); Eosinophils % 0.2 % (0.00-10.9); Hematocrit 32.3 VOL% (42.0-52.0); Hemoglobin 10.1 GM/DL (14.0-18.0); Immature Granulocytes % 0.3 %; Immature Granulocytes Absolute 0.02 #; Lymphocytes # 0.6 10*3/uL (1.4-4.0); Lymphocytes % 10.8 % (21.2-54.2); Mean Corpuscular HGB Conc 31.3 GM/DL (32-36); Mean Platelet Volume 9.9 FL (9.6-12.0); Monocytes # 0.2 10*3/uL (0.11-0.8); Neutrophils % 85.5 % (38.7-73.9); Platelet Count 216 T/CUMM (130-400); Red Blood Count 3.51 MC/CUMM (3.8-5.5); Red Cell Distribution Width 13.8 % (9.3-17.3); White Blood Count 5.8 T/CUMM (4-12)
[2021-11-12 05:53] LABS: Calcium 8.5 MG/DL (8.5-10.1); Osmolality,Calculated 275.1 MOS/KG (273-304); Potassium 5.2 MMOL/L (3.5-5.1)
[2021-11-12] MEDS: LACTATED RINGERS 1,000 ML IV SCH (06:08)
[2021-11-12] MEDS ORDERED: ALBUTEROL/IPRATROPIUM 3 ML NEB RESP TX ONE (06:48)
[2021-11-12] MEDS: ASCORBIC ACID 500 MG TABLET PO SCH (09:06)
[2021-11-12] MEDS: ASPIRIN EC 81 MG TABLET PO SCH (09:07)
[2021-11-12] MEDS: amLODIPine 5 MG TABLET PO SCH (09:08)
[2021-11-12] MEDS: PANTOPRAZOLE 40 MG TABLET PO SCH (09:08)
[2021-11-12] MEDS: INSULIN REGULAR 100 UNIT/ML SUBCUT SCH ×4 (09:09→22:37)
[2021-11-12] MEDS ORDERED: ZINC OXIDE PASTE 113 GM TUBE TOP PRN (12:07)
[2021-11-12] MEDS ORDERED: CETIRIZINE 10 MG TABLET PO PRN (14:28)
[2021-11-12] MEDS: LEVOFLOXACIN INJ 750 MG/150 ML PREMIX IV SCH (18:45)
[2021-11-12] MEDS: buPROPion SR 100 MG TABLET PO SCH (21:14)
[2021-11-12] MEDS: ENOXAPARIN 40 MG/0.4 ML SYRINGE SUBCUT SCH (21:14)
[2021-11-12] MEDS: MAGNESIUM OXIDE 400 MG TABLET PO SCH (21:15)
[2021-11-12] MEDS: traZODone 50 MG TABLET PO SCH (21:15)
[2021-11-12] MEDS: MEMANTINE 10 MG TABLET PO SCH (21:16)
[2021-11-12] MEDS: TAMSULOSIN 0.4 MG CAPSULE PO SCH (21:16)
[2021-11-12] MEDS: MONTELUKAST 10 MG TABLET PO SCH (21:16)
[2021-11-12] MEDS: ATORVASTATIN 80 MG TABLET PO SCH (21:16)
[2021-11-12] MEDS: PHENobarbital 30 MG TABLET PO SCH (21:17)
[2021-11-12] MEDS: DOCUSATE SODIUM 100 MG CAPSULE PO SCH (21:18)
[2021-11-13] MEDS: ALBUTEROL 2.5 MG/3 ML NEB RESP TX SCH ×4 (00:05→19:22)
[2021-11-13] MEDS: methylPREDNISolone SOD SUC 40 MG/1 ML VIAL IV SCH ×3 (02:11→20:51)
[2021-11-13 05:35] LABS: Basophils % 0.4 % (0.0-0.8); Eosinophils % 0.2 % (0.00-10.9); Hematocrit 33.2 VOL% (42.0-52.0); Hemoglobin 10.6 GM/DL (14.0-18.0); Immature Granulocytes % 0.4 %; Immature Granulocytes Absolute 0.02 #; Lymphocytes # 0.6 10*3/uL (1.4-4.0); Lymphocytes % 11.7 % (21.2-54.2); Mean Corpuscular HGB Conc 31.9 GM/DL (32-36); Mean Corpuscular Volume 90.2 FL (87-102); Mean Platelet Volume 9.8 FL (9.6-12.0); Monocytes # 0.2 10*3/uL (0.11-0.8); Monocytes % 3.9 % (1.7-12.7); Neutrophils % 83.4 % (38.7-73.9); Platelet Count 240 T/CUMM (130-400); Red Blood Count 3.68 MC/CUMM (3.8-5.5); Red Cell Distribution Width 13.7 % (9.3-17.3); White Blood Count 5.4 T/CUMM (4-12)
[2021-11-13 05:49] LABS: Calcium 8.5 MG/DL (8.5-10.1); Osmolality,Calculated 276.7 MOS/KG (273-304); Potassium 4.6 MMOL/L (3.5-5.1)
[2021-11-13] MEDS: INSULIN REGULAR 100 UNIT/ML SUBCUT SCH ×4 (09:01→20:51)
[2021-11-13] MEDS: ASCORBIC ACID 500 MG TABLET PO SCH (09:17)
[2021-11-13] MEDS: DOCUSATE SODIUM 100 MG CAPSULE PO SCH ×2 (09:17→20:50)
[2021-11-13] MEDS: VENLAFAXINE XR 75 MG CAPSULE PO SCH (09:17)
[2021-11-13] MEDS: PANTOPRAZOLE 40 MG TABLET PO SCH (09:17)
[2021-11-13] MEDS: ASPIRIN EC 81 MG TABLET PO SCH (09:17)
[2021-11-13] MEDS: buPROPion SR 100 MG TABLET PO SCH ×2 (09:17→20:50)
[2021-11-13] MEDS: amLODIPine 5 MG TABLET PO SCH (09:18)
[2021-11-13] MEDS: risperiDONE 0.5 MG TABLET PO SCH (09:18)
[2021-11-13] MEDS: MEMANTINE 10 MG TABLET PO SCH ×2 (09:18→20:53)
[2021-11-13] MEDS: PHENobarbital 30 MG TABLET PO SCH ×2 (09:18→20:50)
[2021-11-13] MEDS: MAGNESIUM OXIDE 400 MG TABLET PO SCH ×3 (09:18→20:51)
[2021-11-13] MEDS: LEVOFLOXACIN INJ 750 MG/150 ML PREMIX IV SCH (18:19)
[2021-11-13] MEDS: ENOXAPARIN 40 MG/0.4 ML SYRINGE SUBCUT SCH (20:50)
[2021-11-13] MEDS: TAMSULOSIN 0.4 MG CAPSULE PO SCH (20:50)
[2021-11-13] MEDS: ATORVASTATIN 80 MG TABLET PO SCH (20:51)
[2021-11-13] MEDS: MONTELUKAST 10 MG TABLET PO SCH (20:51)
[2021-11-13] MEDS: traZODone 50 MG TABLET PO SCH (20:51)
[2021-11-14] MEDS: ALBUTEROL 2.5 MG/3 ML NEB RESP TX SCH ×4 (00:33→19:14)
[2021-11-14 06:16] LABS: Basophils % 0.2 % (0.0-0.8); Eosinophils % 0.4 % (0.00-10.9); Hematocrit 33.7 VOL% (42.0-52.0); Hemoglobin 10.6 GM/DL (14.0-18.0); Immature Granulocytes % 0.2 %; Immature Granulocytes Absolute 0.01 #; Lymphocytes # 1.1 10*3/uL (1.4-4.0); Lymphocytes % 24.1 % (21.2-54.2); Mean Corpuscular HGB Conc 31.5 GM/DL (32-36); Mean Corpuscular Volume 90.3 FL (87-102); Mean Platelet Volume 9.6 FL (9.6-12.0); Monocytes # 0.5 10*3/uL (0.11-0.8); Monocytes % 10.4 % (1.7-12.7); Neutrophils % 64.7 % (38.7-73.9); Platelet Count 257 T/CUMM (130-400); Red Blood Count 3.73 MC/CUMM (3.8-5.5); Red Cell Distribution Width 13.8 % (9.3-17.3); White Blood Count 4.7 T/CUMM (4-12)
[2021-11-14 06:34] LABS: Calcium 8.8 MG/DL (8.5-10.1); Potassium 4.2 MMOL/L (3.5-5.1)
[2021-11-14] MEDS: MAGNESIUM OXIDE 400 MG TABLET PO SCH ×3 (09:24→19:53)
[2021-11-14] MEDS: DOCUSATE SODIUM 100 MG CAPSULE PO SCH ×2 (09:24→19:53)
[2021-11-14] MEDS: ASPIRIN EC 81 MG TABLET PO SCH (09:24)
[2021-11-14] MEDS: VENLAFAXINE XR 75 MG CAPSULE PO SCH (09:24)
[2021-11-14] MEDS: MEMANTINE 10 MG TABLET PO SCH ×2 (09:24→19:54)
[2021-11-14] MEDS: PANTOPRAZOLE 40 MG TABLET PO SCH (09:25)
[2021-11-14] MEDS: amLODIPine 5 MG TABLET PO SCH (09:25)
[2021-11-14] MEDS: ASCORBIC ACID 500 MG TABLET PO SCH (09:25)
[2021-11-14] MEDS: buPROPion SR 100 MG TABLET PO SCH ×2 (09:25→21:23)
[2021-11-14] MEDS: risperiDONE 0.5 MG TABLET PO SCH (09:25)
[2021-11-14] MEDS: PHENobarbital 30 MG TABLET PO SCH ×2 (09:25→20:06)
[2021-11-14] MEDS: methylPREDNISolone SOD SUC 40 MG/1 ML VIAL IV SCH ×3 (09:26→20:06)
[2021-11-14] MEDS: NICOTINE 21 MG/24 HR PATCH TRANSDERM SCH (09:33)
[2021-11-14] MEDS: INSULIN REGULAR 100 UNIT/ML SUBCUT SCH ×4 (11:19→21:22)
[2021-11-14] MEDS: LEVOFLOXACIN INJ 750 MG/150 ML PREMIX IV SCH (18:04)
[2021-11-14] MEDS: ATORVASTATIN 80 MG TABLET PO SCH (19:53)
[2021-11-14] MEDS: MONTELUKAST 10 MG TABLET PO SCH (19:54)
[2021-11-14] MEDS: traZODone 50 MG TABLET PO SCH (19:55)
[2021-11-14] MEDS: TAMSULOSIN 0.4 MG CAPSULE PO SCH (19:55)
[2021-11-14] MEDS: ENOXAPARIN 40 MG/0.4 ML SYRINGE SUBCUT SCH (21:23)
[2021-11-15] MEDS: ALBUTEROL 2.5 MG/3 ML NEB RESP TX SCH ×3 (00:18→14:10)
[2021-11-15] MEDS: methylPREDNISolone SOD SUC 40 MG/1 ML VIAL IV SCH ×2 (05:19→12:32)
[2021-11-15 06:41] LABS: Basophils % 0.4 % (0.0-0.8); Eosinophils # 0.1 10*3/uL (0.0-0.87); Eosinophils % 0.9 % (0.00-10.9); Hematocrit 34.3 VOL% (42.0-52.0); Hemoglobin 10.9 GM/DL (14.0-18.0); Immature Granulocytes % 0.4 %; Immature Granulocytes Absolute 0.02 #; Lymphocytes # 1.7 10*3/uL (1.4-4.0); Lymphocytes % 31.5 % (21.2-54.2); Mean Corpuscular HGB Conc 31.8 GM/DL (32-36); Mean Corpuscular Volume 90.5 FL (87-102); Mean Platelet Volume 9.2 FL (9.6-12.0); Monocytes # 0.7 10*3/uL (0.11-0.8); Monocytes % 12.3 % (1.7-12.7); Neutrophils % 54.5 % (38.7-73.9); Platelet Count 252 T/CUMM (130-400); Red Blood Count 3.79 MC/CUMM (3.8-5.5); Red Cell Distribution Width 13.7 % (9.3-17.3); White Blood Count 5.3 T/CUMM (4-12)
[2021-11-15 06:58] LABS: Calcium 9.1 MG/DL (8.5-10.1); Osmolality,Calculated 274.7 MOS/KG (273-304); Potassium 4.9 MMOL/L (3.5-5.1)
[2021-11-15] MEDS: PHENobarbital 30 MG TABLET PO SCH (08:47)
[2021-11-15] MEDS: buPROPion SR 100 MG TABLET PO SCH (08:48)
[2021-11-15] MEDS: ASPIRIN EC 81 MG TABLET PO SCH (08:48)
[2021-11-15] MEDS: PANTOPRAZOLE 40 MG TABLET PO SCH (08:48)
[2021-11-15] MEDS: amLODIPine 5 MG TABLET PO SCH (08:48)
[2021-11-15] MEDS: MAGNESIUM OXIDE 400 MG TABLET PO SCH ×2 (08:48→14:12)
[2021-11-15] MEDS: MEMANTINE 10 MG TABLET PO SCH (08:48)
[2021-11-15] MEDS: DOCUSATE SODIUM 100 MG CAPSULE PO SCH (08:48)
[2021-11-15] MEDS: VENLAFAXINE XR 75 MG CAPSULE PO SCH (08:48)
[2021-11-15] MEDS: ASCORBIC ACID 500 MG TABLET PO SCH (08:49)
[2021-11-15] MEDS: NICOTINE 21 MG/24 HR PATCH TRANSDERM SCH (08:49)
[2021-11-15] MEDS: risperiDONE 0.5 MG TABLET PO SCH (08:51)
[2021-11-15] MEDS: INSULIN REGULAR 100 UNIT/ML SUBCUT SCH ×2 (11:05→12:40)
[2021-11-15 12:03] VITALS: BP 140/68
== END 2021-11-15 15:53 | DRG 190 ==
LOC: EDBD → EDUNIT# → N.ED 16:55 → SUATTDRO 20:15 → N.EDINP 20:15 → N.3E 21:08
PROVIDERS: ADMIT Hospitalist; ATTEND Internal Medicine

== ENCOUNTER 2021-12-17 09:18 | Inpatient (IN) ==
[2021-12-17] MEDS ORDERED: methylPREDNISolone SOD SUC 125 MG/2 ML VIAL IV STA (09:59)
[2021-12-17] MEDS ORDERED: ALBUTEROL NEB SOLN 5 MG/ML 20 ML/BOTTLE CONT NEB SCH (10:00)
[2021-12-17 10:09] LABS: Basophils % 0.3 % (0.0-0.8); Eosinophils # 0.3 10*3/uL (0.0-0.87); Eosinophils % 3.1 % (0.00-10.9); Hematocrit 33.5 VOL% (42.0-52.0); Hemoglobin 10.8 GM/DL (14.0-18.0); Immature Granulocytes % 0.5 %; Immature Granulocytes Absolute 0.05 #; Lymphocytes # 0.7 10*3/uL (1.4-4.0); Lymphocytes % 7.3 % (21.2-54.2); Mean Corpuscular HGB Conc 32.2 GM/DL (32-36); Mean Corpuscular Volume 90.5 FL (87-102); Mean Platelet Volume 9.2 FL (9.6-12.0); Monocytes # 1.1 10*3/uL (0.11-0.8); Monocytes % 10.3 % (1.7-12.7); Neutrophils % 78.5 % (38.7-73.9); Platelet Count 218 T/CUMM (130-400); Red Cell Distribution Width 14.8 % (9.3-17.3); White Blood Count 10.2 T/CUMM (4-12)
[2021-12-17] MEDS ORDERED: LEVOFLOXACIN INJ 500 MG/100 ML PREMIX IV STA (13:27)
[2021-12-17] MEDS ORDERED: DOCUSATE SODIUM 100 MG CAPSULE PO PRN (13:48)
[2021-12-17] MEDS ORDERED: ACETAMINOPHEN 325 MG TABLET PO PRN (13:48)
[2021-12-17] MEDS ORDERED: ONDANSETRON 4 MG/2 ML VIAL IV PRN (13:48)
[2021-12-17] MEDS ORDERED: ALBUTEROL 1.25 MG/3 ML NEB RESP TX PRN (13:55)
[2021-12-17] MEDS: ALBUTEROL/IPRATROPIUM 3 ML NEB RESP TX SCH ×3 (14:00→23:27)
[2021-12-17 14:04] LABS: Calcium 8.3 MG/DL (8.5-10.1); Potassium 4.1 MMOL/L (3.5-5.1)
[2021-12-17] MEDS: ENOXAPARIN 40 MG/0.4 ML SYRINGE SUBCUT SCH (15:20)
[2021-12-17] MEDS: SODIUM CHLORIDE 0.9% 1,000 ML IV SCH (15:35)
[2021-12-17] MEDS: VANCOMYCIN INJ 1,000 MG in SODIUM CHLORIDE 0.9% 250 ML IV SCH (16:11)
[2021-12-17] MEDS: INSULIN REGULAR 100 UNIT/ML SUBCUT SCH ×2 (17:20→21:26)
[2021-12-17] MEDS: TAMSULOSIN 0.4 MG CAPSULE PO SCH (21:16)
[2021-12-17] MEDS: methylPREDNISolone SOD SUC 40 MG/1 ML VIAL IV SCH (21:16)
[2021-12-17] MEDS: PHENobarbital 30 MG TABLET PO SCH (21:16)
[2021-12-17] MEDS: MONTELUKAST 10 MG TABLET PO SCH (21:17)
[2021-12-18] MEDS: ALBUTEROL/IPRATROPIUM 3 ML NEB RESP TX SCH ×6 (02:44→23:46)
[2021-12-18] MEDS: VANCOMYCIN INJ 1,000 MG in SODIUM CHLORIDE 0.9% 250 ML IV SCH ×2 (03:15→16:26)
[2021-12-18 05:48] LABS: Basophils % 0.1 % (0.0-0.8); Eosinophils % 0.5 % (0.00-10.9); Hematocrit 30.6 VOL% (42.0-52.0); Hemoglobin 9.8 GM/DL (14.0-18.0); Immature Granulocytes % 0.5 %; Immature Granulocytes Absolute 0.04 #; Lymphocytes # 0.7 10*3/uL (1.4-4.0); Lymphocytes % 8.8 % (21.2-54.2); Mean Corpuscular Volume 91.3 FL (87-102); Mean Platelet Volume 9.1 FL (9.6-12.0); Monocytes # 0.6 10*3/uL (0.11-0.8); Monocytes % 7.3 % (1.7-12.7); Neutrophils % 82.8 % (38.7-73.9); Platelet Count 203 T/CUMM (130-400); Red Blood Count 3.35 MC/CUMM (3.8-5.5); Red Cell Distribution Width 14.6 % (9.3-17.3); White Blood Count 7.6 T/CUMM (4-12)
[2021-12-18 06:04] LABS: Calcium 8.2 MG/DL (8.5-10.1); Osmolality,Calculated 273.1 MOS/KG (273-304); Potassium 4.1 MMOL/L (3.5-5.1)
[2021-12-18] MEDS: methylPREDNISolone SOD SUC 40 MG/1 ML VIAL IV SCH ×2 (09:34→21:27)
[2021-12-18] MEDS: risperiDONE 0.5 MG TABLET PO SCH (09:35)
[2021-12-18] MEDS: VENLAFAXINE XR 75 MG CAPSULE PO SCH (09:35)
[2021-12-18] MEDS: PHENobarbital 30 MG TABLET PO SCH ×2 (09:35→21:27)
[2021-12-18] MEDS: ASPIRIN EC 81 MG TABLET PO SCH (09:35)
[2021-12-18] MEDS: FOLIC ACID 1 MG TABLET PO SCH (09:35)
[2021-12-18] MEDS: SODIUM CHLORIDE 0.9% 1,000 ML IV SCH (09:36)
[2021-12-18] MEDS: INSULIN REGULAR 100 UNIT/ML SUBCUT SCH ×4 (10:11→21:28)
[2021-12-18 14:24] LABS: Basophils % 0.3 % (0.0-0.8); Eosinophils # 0.1 10*3/uL (0.0-0.87); Eosinophils % 0.9 % (0.00-10.9); Hematocrit 33.5 VOL% (42.0-52.0); Hemoglobin 10.8 GM/DL (14.0-18.0); Immature Granulocytes % 0.4 %; Immature Granulocytes Absolute 0.03 #; Lymphocytes # 0.4 10*3/uL (1.4-4.0); Lymphocytes % 5.3 % (21.2-54.2); Mean Corpuscular HGB Conc 32.2 GM/DL (32-36); Mean Corpuscular Volume 90.5 FL (87-102); Mean Platelet Volume 9.1 FL (9.6-12.0); Monocytes # 0.3 10*3/uL (0.11-0.8); Monocytes % 3.7 % (1.7-12.7); Neutrophils % 89.4 % (38.7-73.9); Platelet Count 208 T/CUMM (130-400); Red Cell Distribution Width 14.6 % (9.3-17.3); White Blood Count 7.8 T/CUMM (4-12)
[2021-12-18] MEDS: LEVOFLOXACIN INJ 500 MG/100 ML PREMIX IV SCH (14:55)
[2021-12-18] MEDS: ENOXAPARIN 40 MG/0.4 ML SYRINGE SUBCUT SCH (14:55)
[2021-12-18] MEDS: PANTOPRAZOLE 40 MG VIAL IV SCH (16:26)
[2021-12-18] MEDS: MONTELUKAST 10 MG TABLET PO SCH (21:27)
[2021-12-18] MEDS: TAMSULOSIN 0.4 MG CAPSULE PO SCH (21:27)
[2021-12-19] MEDS: VANCOMYCIN INJ 1,000 MG in SODIUM CHLORIDE 0.9% 250 ML IV SCH ×2 (03:30→16:57)
[2021-12-19 06:09] LABS: Basophils % 0.3 % (0.0-0.8); Eosinophils # 0.1 10*3/uL (0.0-0.87); Eosinophils % 1.2 % (0.00-10.9); Hematocrit 33.5 VOL% (42.0-52.0); Hemoglobin 10.6 GM/DL (14.0-18.0); Immature Granulocytes % 0.5 %; Immature Granulocytes Absolute 0.03 #; Lymphocytes % 16.3 % (21.2-54.2); Mean Corpuscular HGB Conc 31.6 GM/DL (32-36); Mean Corpuscular Volume 91.8 FL (87-102); Mean Platelet Volume 9.6 FL (9.6-12.0); Monocytes # 0.4 10*3/uL (0.11-0.8); Neutrophils % 74.7 % (38.7-73.9); Platelet Count 223 T/CUMM (130-400); Red Blood Count 3.65 MC/CUMM (3.8-5.5); Red Cell Distribution Width 14.5 % (9.3-17.3); White Blood Count 5.9 T/CUMM (4-12)
[2021-12-19 06:32] LABS: Calcium 8.6 MG/DL (8.5-10.1); Osmolality,Calculated 279.7 MOS/KG (273-304)
[2021-12-19] MEDS: ALBUTEROL/IPRATROPIUM 3 ML NEB RESP TX SCH ×4 (07:52→19:06)
[2021-12-19] MEDS: risperiDONE 0.5 MG TABLET PO SCH (09:30)
[2021-12-19] MEDS: PHENobarbital 30 MG TABLET PO SCH ×2 (09:30→21:10)
[2021-12-19] MEDS: FOLIC ACID 1 MG TABLET PO SCH (09:30)
[2021-12-19] MEDS: VENLAFAXINE XR 75 MG CAPSULE PO SCH (09:30)
[2021-12-19] MEDS: ASPIRIN EC 81 MG TABLET PO SCH (09:30)
[2021-12-19] MEDS: methylPREDNISolone SOD SUC 40 MG/1 ML VIAL IV SCH ×2 (09:33→21:35)
[2021-12-19] MEDS: PANTOPRAZOLE 40 MG VIAL IV SCH (09:33)
[2021-12-19] MEDS: SODIUM CHLORIDE 0.9% 1,000 ML IV SCH ×3 (10:22→21:08)
[2021-12-19] MEDS: INSULIN REGULAR 100 UNIT/ML SUBCUT SCH ×4 (10:46→21:09)
[2021-12-19] MEDS: LEVOFLOXACIN INJ 500 MG/100 ML PREMIX IV SCH (14:06)
[2021-12-19 14:25] LABS: Bilirubin,Urine Negative (Negative); Blood, Urine Large mg/dL (Negative); Glucose,Urine (UA) >=500 mg/dL (Negative); Ketones,Urine Negative (Negative); Nitrite,Urine Negative (Negative); Protein,Urine Negative (Negative); RBC,Urine 269 /HPF (0-4); Squamous Epithelial Cell,Urine Occasional /HPF (0-10); Urine Appearance CLEAR (Clear); Urine Color Straw (Yellow); Urine Specific Gravity 1.007 (1.001-1.035); Urine Urobilinogen < 2.0 eU/dL (<2.0)
[2021-12-19] MEDS: TAMSULOSIN 0.4 MG CAPSULE PO SCH (21:10)
[2021-12-19] MEDS: MONTELUKAST 10 MG TABLET PO SCH (21:10)
[2021-12-20] MEDS: ALBUTEROL/IPRATROPIUM 3 ML NEB RESP TX SCH ×3 (00:34→07:21)
[2021-12-20] MEDS: VANCOMYCIN INJ 1,000 MG in SODIUM CHLORIDE 0.9% 250 ML IV SCH ×2 (02:51→15:28)
[2021-12-20] MEDS: PHENobarbital 30 MG TABLET PO SCH (09:21)
[2021-12-20] MEDS: VENLAFAXINE XR 75 MG CAPSULE PO SCH (09:22)
[2021-12-20] MEDS: ASPIRIN EC 81 MG TABLET PO SCH (09:22)
[2021-12-20] MEDS: risperiDONE 0.5 MG TABLET PO SCH (09:22)
[2021-12-20] MEDS: FOLIC ACID 1 MG TABLET PO SCH (09:22)
[2021-12-20] MEDS: PANTOPRAZOLE 40 MG VIAL IV SCH (09:23)
[2021-12-20] MEDS: methylPREDNISolone SOD SUC 40 MG/1 ML VIAL IV SCH (09:23)
[2021-12-20] MEDS: INSULIN REGULAR 100 UNIT/ML SUBCUT SCH ×2 (09:23→15:28)
[2021-12-20] MEDS: SODIUM CHLORIDE 0.9% 1,000 ML IV SCH (12:03)
[2021-12-20 12:54] VITALS: BP 150/72
[2021-12-20] MEDS: LEVOFLOXACIN INJ 500 MG/100 ML PREMIX IV SCH (15:29)
== END 2021-12-20 15:00 | DRG 194 ==
LOC: N.ED 09:18 → N.EDINP 13:43 → SUATTDRO 13:43 → N.TELEN 15:43
PROVIDERS: ADMIT Hospitalist; ATTEND Internal Medicine